=== PATIENT | female | born 2000 | race Caucasian/White ===

== ENCOUNTER 2024-05-14 12:34 | Emergency (ER) | payer BC, SELFPAY ==
[2024-05-14 12:39] VITALS: BP 128/84; PULSE 122; RESP 18; TEMP 37; O2SAT 99; BMI 18.8
--- NOTE | 2024-05-14 13:13 | ED_ITS ---
HPI - General Adult General Chief complaint: Sore Throat Stated complaint: chest/throat tightness/bodyaches Time Seen by Provider: 05/14/24 12:42 History of Present Illness HPI narrative: This 23-year-old female comes in reporting 5 days of sore throat, cough, chest tightness, generalized aches and pains, and fever. She states that she did not measure her temperature but felt feverish until last night when she did measure at and noted a temperature of a 101? F. she went to urgent care prior to arrival here and was instructed to come here for further evaluation. She does not have any trismus or muffled voice. She arrives with normal vital signs except she has some tachycardia. Related Data Home Medications ?Medication ?Instructions ?Recorded ?Confirmed albuterol sulfate .ROUTE PRN 05/14/24 Previous Rx's ?Medication ?Instructions ?Recorded acetaminophen 300 mg-codeine 30 mg 1 tab PO Q6H PRN pain #15 tabs 05/14/24 tablet azithromycin 250 mg tablet 250 mg PO DAILY #6 tabs 05/14/24 (Zithromax Z-Jhonny) Allergies Allergy/AdvReac Type Severity Reaction Status Date / Time No Known Drug Allergies Allergy Verified 05/14/24 12:38 Review of Systems Status of ROS: Reports: 10 or more systems reviewed and unremarkable except as noted in History and below Narrative: Constitutional: No . weight gain or loss. She reports fevers. Eyes: No discharge. No vision changes. HENT: No congestion, no ear pain. Sore throat. Cardiovascular: No chest pain, no palpitations. Respiratory: No shortness of breath, no wheezes. She reports a cough. Gastrointestinal: No abdominal pain, no vomiting, no diarrhea. Genitourinary: No dysuria, no hematuria. Musculoskeletal: Normal range of motion. Skin: No rashes, no pruritis. Neurological: No dizziness, weakness, sensory change, speech change. Endo/Heme/Allergies: No bruising or bleeding. No polydipsia. Pysch: no suicidality, no anxiety, no insomnia. All other systems reviewed and are negative. PFS PFS Social History Smoking Status: Never smoker How often do you have a drink containing alcohol: monthly or less AUDIT-C Alcohol total score: 1 Non-prescribed substance use: denies use Exam Narrative: Exam Narrative: Constitutional: Well-developed, well-nourished, no acute distress. HEENT: Normocephalic, atraumatic. Pharyngeal erythema without exudate or tonsillar hypertrophy. Neck: Normal range of motion. Nontender. Supple. Heart: Regular. No murmurs. Normal rate. Intact distal pulses. Lungs: Clear to auscultation. No chest discomfort. No wheezes, rhonchi, or rales. Abdomen: Normal bowel sounds. Nontender. No rebound tenderness. Genitalia: Deferred. Back: No midline tenderness. Normal range of motion. Extremities: Normal range of motion. No injury. Skin: Intact. No rash. Warm. No erythema or pallor. Neurologic: No altered sensation. No weakness. Alert and oriented. Psychiatric: No suicidality. No anxiety or depression. No insomnia. Nursing notes and vitals signs are reviewed. Const: Vital Signs, click to edit/add: Vital Signs - 24 hr 05/14/24 12:39 Temperature 98.6 F Pulse Rate [Pulse Oximeter] 122 H Respiratory Rate 18 Blood Pressure [[facility]] 128/84 Pulse Oximetry 99 Course Vital Signs Vital signs: Initial Vital Signs Temperature 98.6 F 05/14/24 12:39 Temperature Source Temporal Artery Scan 05/14/24 12:39 Pulse Rate 122 H 05/14/24 12:39 Respiratory Rate 18 05/14/24 12:39 Blood Pressure 128/84 05/14/24 12:39 Blood Pressure Mean 98 05/14/24 12:39 Blood Pressure Position Sitting 05/14/24 12:39 Pulse Oximetry 99 05/14/24 12:39 Vital Signs Temperature 98.6 F 05/14/24 12:39 Pulse Rate 122 H 05/14/24 12:39 Respiratory Rate 18 05/14/24 12:39 Blood Pressure 128/84 05/14/24 12:39 Pulse Oximetry 99 05/14/24 12:39 Temperature 98.6 F 05/14/24 12:39 Pulse Rate 122 H 05/14/24 12:39 Respiratory Rate 18 05/14/24 12:39 Blood Pressure 128/84 05/14/24 12:39 Pulse Oximetry 99 05/14/24 12:39 Medications Administered Medications: Discontinued Medications Generic Name Dose Route Start Last Admin Trade Name Freq PRN Reason Stop Dose Admin Dexamethasone 10 mg 05/14/24 13:12 05/14/24 13:21 Dexamethasone 10 Mg/Ml Inj PO 05/14/24 13:13 10 mg ONCE ONE Administration Medical Decision Making MDM Narrative Medical decision making narrative: This 23-year-old female comes in reporting 5 days of upper respiratory symptoms which is included a fever over these 5 days. Her vital signs are normal except for some mild tachycardia. Nasal pharyngeal swab and oral pharyngeal swab results are all negative. Given the patient's persistent fevers over the course of these 5 days I did prescribe a Z-Jhonny. She also received a prescription for some tablets of Tylenol 3 for symptomatic relief. Additionally she did receive a 1 time dose of dexamethasone 10 mg here. Lab Data Labs: Lab Results 05/14/24 Range/Units 12:45 SARS-CoV-2 (PCR) Negative SARS-CoV-2 (Negative) Influenza Type A (PCR) Negative PCR FLU A (Negative) Influenza Type B (PCR) Negative PCR FLU B (Negative) RSV (PCR) Negative PCR RSV (Negative) Group A Strep DNA NOT DETECTED (Not Detectd) Discharge Plan Discharge Clinical Impression: Acute lower respiratory infection Patient Disposition: Home, Self-Care Condition: Unchanged Additional Instructions: Take medications as needed and directed. Follow up with MD return if worsening. Prescriptions: New azithromycin [Zithromax Z-Jhonny] 250 mg tablet 250 mg PO DAILY Qty: 6 0RF acetaminophen-codeine 300-30 mg tablet 1 tab PO Q6H PRN (Reason: pain) Qty: 15 0RF No Action albuterol sulfate .ROUTE PRN Follow Up/Referrals: Provider,Not a Local [Primary Care Provider] - Stand Alone Forms: Klatcher Info Instructions
[2024-05-14] MEDS: dexAMETHasone 10 MG/ML inj PO (13:21)
[2024-05-14 13:25] LABS: Strep A DNA Probe* NOT DETECTED (Not Detectd)
[2024-05-14 13:37] LABS: PCR FLU A Negative PCR FLU A (Negative); PCR FLU B Negative PCR FLU B (Negative); PCR RSV Negative PCR RSV (Negative); SARS PCR* Negative SARS-CoV-2 (Negative)
--- OUTSIDE RECORDS SUMMARY | 2024-05-14 13:53 | XMS_ITS | Clinical Summary ---
Author Organization [facility] Address [address] [place] [address] Care Team Providers Care Plant Pathology Teacher Name Role Phone Unavailable Primary Care Provider Unavailabl e Source Comments You are receiving this document as you are listed as the primary care provider,follow-up provider, or the patient has been referred to you for consultation.This is in compliance with the Medicare andMedicaid EHR Incentive Program,which states Providers who transition their patient to another setting of careor provider of care or refers their patient to another provider of care shouldprovide summary care record for each transition of care or referral. [facility] Allergies No known active allergies Medications Medication Sig Dispensed Refills Start Date End Date Status hydrOXYzine HCl (ATARAX) 25 MG tablet Take 1 Tablet (25 mg) by mouth daily at bedtime. 02/13/2024 Active ALBUterol sulfate HFA 108 (90 Base) MCG/ACT inhalerIndications:Exer cise induced bronchospasm (HRC) Inhale 1-2 Puffs every 4 hours as needed for Wheezing. 18 g 2 03/15/2024 Active Active Problems Problem Noted Date Diagnosed Date HAILEY (generalized anxiety disorder) 10/28/2022 Major depressive disorder, single episode, mild 10/28/2022 Exercise induced bronchospasm 03/08/2018 Encounters Date Type Department Care Team Description 05/14/2024 11:40 AM HOSPITAL INTERN Office Visit Shaina Alirio [facility] [address] [place] [address] Eileen Waggoner MD Tachycardia; Chest pain, unspecified type 03/23/2024 8:30 AM HOSPITAL INTERN Office Visit [facility] [address], [address] [place] [address] Елена Duron, CLINICAL RESEARCH ADMINISTRATOR, PROSTHETIC ASSISTANT Nabothian cyst (Primary Dx); Cervical ectropion 03/15/2024 8:00 AM HOSPITAL INTERN Office Visit [facility] [id number] [place] [address] Kyle Quintero, CLINICAL RESEARCH ADMINISTRATOR, PROSTHETIC ASSISTANT Routine physical examination (Primary Dx); Lesion of cervix; Vaginal discharge; Decreased hearing of both ears; Exercise induced bronchospasm (HRC); HAILEY (generalized anxiety disorder) (HRC); Major depressive disorder, single episode, mild (HRC); Screening for malignant neoplasm of cervix; Routine screening for STI (sexually transmitted infection) from Last 3 Months Immunizations Name Administration Dates Next Due 4vHPV (Gardasil) 06/08/2013,02/27/2013 9vHPV (Gardasil 9) 09/01/2021 DTaP 12/01/2006, 3,11/23/2001, 002,09/26/2001 Flu Vac (3+ yrs) 02/27/2013, 2,03/09/2011, 010,01/25/2009,03/26/2008,04/13/2007,,06/23/2006,03/18/2005 Flu Vac Preserv Free (3+yrs) 03/09/2011 HepA Ped/Adol (1-18 yrs) 11/16/2007 Hib/HBV 11/23/2001,09/26/2001,05/23/2001 IPV (Polio) 07/25/2002,09/26/2001,05/23/2001 Influenza IIV4 (Quadrivalent ) 0.5mL (22422) 03/08/2018,02/22/2017,03/29/2016, 015,03/01/2014 MCV4 Menveo 2m.+ (two vial) 02/27/2013 MMR 12/01/2006,11/23/2001 Tdap 02/27/2013 Varicella 03/08/2018,03/18/2005 Family History Medical History Relation Name Comments Cancer, Melanoma Father Diabetes, Type II Mother Thyroid Disorder Mother ? Cancer Maternal Grandmother Judy Leukemi a Leukemia Maternal Grandmother Judy ? Cancer, Breast Negative Family History Cancer, Colon Negative Family History Cancer, Ovary Negative Family History Relation Name Status Comments Father Alive Mother Alive Brother 1 Alive Brother 2 Alive Maternal Grandfather Alive Maternal Grandmother Judy Alive Paternal Grandfather Paternal Grandmother Sister 1 Alive Sister 2 Alive Sister 3 Alive Social History Tobacco Use Types Packs/Day Years Used Date Smoking Tobacco: Never Smokeless Tobacco: Never Tobacco Cessation:Counseling Given: Not Answered Alcohol Use Standard Drinks/Week Comments Not Currently 0 (1 standard drink = 0.6 oz pur e alcohol) occ PHQ-2 Answer Date Recorded PHQ-2 Score 0 03/15/2024 Hunger Vital Sign Answer Date Recorded Within the past 12 months, y ou worried that your food would run out before you got the money to buy more. Never true 03/14/20 24 Within the past 12 months, t he food you bought just didn't last and you didn't have money to get more. Never true 03/14/2024 PRAPARE - Transportation Answer Date Re corded In the past 12 months, has l ack of transportation kept you from medical appointments or from getting medications? No 03/02 In the past 12 months, has l ack of transportation kept you from meetings, work, or from getting things needed for daily living? No 03/14/2024 Housing Stability Vital Sign Answer Michael e Recorded In the last 12 months, was t here a time when you were not able to pay the mortgage or rent on time? No 03/14/2024 In the past 12 months, how m any times have you moved where you were living? 1 03/14/2024 At any time in the past 12 m [facility], were you homeless or living in a skilled nursing (including now)? No 03/14/2024 Financial Resource Strain Answer Date R ecorded Is it hard for you to pay fo r the very basics like food, housing, medical care or heating? No 10/26/2022 Food Insecurity Answer Date Recorded Does your food run out before you have the money to buy more? No 10/26/2022 Transportation Needs Answer Date Record ed Does a lack of transportatio n keep you from your medical appointments or from getting your medications? No 023 Sex and Gender Information Value Date Recorded Sex Assigned at Not on file Gender Identity Not on file Sexual Orientation Not on file Last Filed Vital Signs Vital Sign Reading Time Taken Comments Blood Pressure 135/76 05/14/2024 11:36 AM HOSPITAL INTERN Pulse 136 05/14/2024 11:36 AM HOSPITAL INTERN Temperature 37.6 C (99.7 F) 05/14/2024 11:36 AM HOSPITAL INTERN Respiratory Rate 16 05/14/2024 11:36 AM HOSPITAL INTERN Oxygen Saturation 99% 05/14/2024 11:36 AM HOSPITAL INTERN Inhaled Oxygen Concentration - - Weight 55.4 kg (122 lb 3.2 oz) 03/23/2024 8:36 A M HOSPITAL INTERN Height 171.5 cm (5' 7.5) 03/23/2024 8:36 AM HOSPITAL INTERN Body Mass Index 18.86 03/23/2024 8:36 AM HOSPITAL INTERN Plan of Treatment Health Maintenance Due Date Last Done Comments Hep C Screening (Preventive Services) 2000 IPV (Polio) (4 of 4 - 4-dose series) 2004 07/25/2002, 09/26/2001, 05/23/2001 HepA (2 of 2 - 2-dose series) 05/18/2008 11/16/2007 HIV Screening (Preventive Services) 2016 DTaP/Tdap/Td (7 - Tdap) 02/27/2023 02/28/20 13, 12/01/2006, 07/25/2002, Additional history exists COVID-19 Vaccine ( season) 2024 Influenza (#1) 2024 03/08/2018, 01/31, 03/29/2016, Additional history exists Adult Preventive Visit 03/15/2025 , 10/28/2022, 09/01/2021 Chlamydia 03/15/2025 03/15/2024 Asthma ACT 04/29/2025 04/29/2024, 03/22/2024 Cervical Cancer Screening 03/15/2027 03/15/2024, 06/2021 Zoster/Shingles (1 of 2) 2050 HepB Completed 11/23/2001, 08/31, 05/23/2001 Hib Completed 11/23/2001, 08/31, 05/23/2001 MCV4 Aged Out 02/27/2013 No longer eligi ble based on patient's age to complete this topic Varicella Completed 03/08/2018, 03/18/2005 HPV Vaccine Completed 09/01/2021, 10/2013, 02/27/2013 Pneumococcal Aged Out No longer eligi ble based on patient's age to complete this topic Procedures Procedure Name Priority Date/Time Associated Diagnosis Comments ECG 12 LEAD OUTPATIENT STAT 05/14/2024 11:47 AM HOSPITAL INTERN Tachycardia VAGINITIS PANEL Routine 03/15/2024 8:15 AM HOSPITAL INTERN Vaginal discharge CHLAMYDIA & GC (14 YEARS & OLDER) Routine 03/15/2024 8:15 AM HOSPITAL INTERN Routine screening for STI (sexually transmitted infection) PAP TEST Routine 03/15/2024 8:15 AM HOSPITAL INTERN Screening for malignant neoplasm of cervix from Last 3 Months Results * ECG 12-LEAD ROUTINE (Non Lab to perform-Today)-STAT (05/14/2024 11:47 AM HOSPITAL INTERN) Ventricular Rate 104 BPM MUSE GHP Atrial Rate 104 BPM MUSE GHP P-R Interval 132 ms MUSE GHP QRS Duration 84 ms MUSE GHP QT 320 ms MUSE GHP QTC 420 ms MUSE GHP P [place] 80 degrees MUSE GHP R [place] 81 degrees MUSE GHP T [place] -4 degrees MUSE GHP 05/14/2024 11:4 7 AM HOSPITAL INTERN Narrative MUSE GHP - 05/14/2024 1:19 PM HOSPITAL INTERN Sinus tachycardia Inferior T wave inversion, consider ischemia Abnormal ECG No previous ECGs available Confirmed by Leilani Christianson ([id number]) on 05/14/2024 1:19:16 PM Procedure Note Leilani Christianson MD - 05/14/2024 Sinus tachycardia Inferior T wave inversion, consider ischemia Abnormal ECG No previous ECGs available Confirmed by Leilani Christianson ([id number]) on 05/14/2024 1:19:16 PM Eileen Waggoner MD PN ECG ORDERABLES [facility] [address] [place] [address] * PAP Test (03/15/2024 8:15 AM HOSPITAL INTERN) Case Report Pap Case: [id number] Authorizing Provider: Kyle Quintero APRN, Collected: 03/15/2024 0815 PROSTHETIC ASSISTANT Ordering Location: [facility] Received: 03/15/2024 1305 First Screen: Nault, Jessie E, [place] (ASCP) Specimen: Pap Test, Routine, Cervix/Endocervix 04/13/2024 3:13 PM HOSPITAL INTERN [facility] Pap Specimen Adequacy Satisfactory for evaluation, endocervical/kwan sformation zone component present. 04/13/2024 3:13 PM HOSPITAL INTERN [facility] Pap Interpretation (NILM) Negative for intraepithelial lesion or malignancy. 04/13/2024 3:13 PM HOSPITAL INTERN [facility] Pap Disclaimer The Pap test is a screening test to aid in the detection of cervical and vaginal cancers and their precursor lesions. It is not a diagnostic procedure and should not be used as the sole means of detecting malignancy. Both false-positive and false-negative results may occur. 04/13/2024 3:13 PM HOSPITAL INTERN [facility] Gross Description The specimen is received in SurePath fixative and properly labeled. 1 Pap-stained SurePath slide is prepared. 04/13/2024 3:13 PM HOSPITAL INTERN [facility] Embedded Images 3:13 PM HOSPITAL INTERN [facility] Other Specimen Type ENTIRE ENDOCERVIX / Unknown 03/15/2024 8:15 AM HOSPITAL INTERN 03/15/2024 1:05 PM HOSPITAL INTERN Comment:LMP: No LMP recorded . Kyle Quintero APRN, PROSTHETIC ASSISTANT LAB PATHOLOGY Performing Organization Address City/[facility]/ZIP Co de Phone Number [facility] [address] [place] [address], [facility] * Vaginitis Panel (Includes Bacterial Vaginosis, Mckenzie Species, Mckenzie Glabrata and Trichomonas Vaginalis.) (03/15/2024 8:15 AM HOSPITAL INTERN) Bacterial Vaginosis Negative Negative 03/16/2024 12:14 PM HOSPITAL INTERN [facility] Mckenzie species Negative Negative 12:14 PM HOSPITAL INTERN [facility] Mckenzie glabrata Negative Negative 03/16/2024 12:14 PM HOSPITAL INTERN [facility] Trichomonas vaginalis Negative Negative 03/16/2024 12:14 PM HOSPITAL INTERN [facility] Swab STD SPECIMEN FROM VAGINA / Unknown Non-blood Collection / Unknown 03/15/2024 8:15 AM HOSPITAL INTERN 03/15/2024 12:57 PM HOSPITAL INTERN [facility] - 03/16/2024 12:14 PM HOSPITAL INTERN Test performed by [employer] Vice President Mediated Amplification (TMA). Kyle Quintero APRN, CNP LAB_1 Performing Organization Address [facility] Co de Phone Number [facility] [address] [place] [address] * Chlamydia & GC (14 Years and Older): Vagina (03/15/2024 8:15 AM HOSPITAL INTERN) Chlamydia Trachomatis STD Not Detected Not Detected 03/16/2024 12:46 PM HOSPITAL INTERN [facility] N. gonorrhoeae STD Not Detected Not Detected 03/16/2024 12:46 PM HOSPITAL INTERN [facility] Swab STD SPECIMEN FROM VAGINA / Unknown Non-blood Collection / Unknown 03/15/2024 8:15 AM HOSPITAL INTERN 03/15/2024 12:57 PM HOSPITAL INTERN [facility] - 03/16/2024 12:46 PM HOSPITAL INTERN Test performed by [employer] Vice President Mediated Amplification (TMA). Kyle Quintero APRN, CNP LAB_1 Performing Organization Address City/[facility] Co de Phone Number [facility] [address] [place] [address] from Last 3 Months Sourav Derickmakayla Personal/Family Self [address] [place] [address]
--- OUTSIDE RECORDS SUMMARY | 2024-05-14 13:53 | XMS_ITS | Encounter Summary ---
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 Name Role Phone Unavailable Primary Care Provider Unavailabl e Reason for Visit * Reason Comments Cough Encounter Details Date Type Department Care Team ([facility] st Contact Info) Description 05/14/2024 11:40 AM SENIOR QUANTITY SURVEYOR Office Visit [facility] [address] [place] [address] Eileen Waggoner MD [address] [place], [place] [id number] Tachycardia; Chest pain, unspecified type Social History Tobacco Use Types Packs/Day Years Used Date Smoking Tobacco: Never Smokeless Tobacco: Never Alcohol Use Standard Drinks/Week Comments Not Currently [...] any time in the past 12 m [facility], were you homeless or living in a halfway (including now)? No 03/14/2024 Financial Resource Strain [...] on file Sexual Orientation Not on file documented as of this encounter Last Filed Vital Signs Vital Sign Reading Time Taken Comments Blood Pressure 135/76 05/14/2024 11:36 AM SENIOR QUANTITY SURVEYOR Pulse 136 05/14/2024 11:36 AM SENIOR QUANTITY SURVEYOR Temperature 37.6 C (99.7 F) 05/14/2024 11:36 AM SENIOR QUANTITY SURVEYOR Respiratory Rate 16 05/14/2024 11:36 AM SENIOR QUANTITY SURVEYOR Oxygen Saturation 99% 05/14/2024 11:36 AM SENIOR QUANTITY SURVEYOR Inhaled Oxygen Concentration - - Weight - - Height - - Body Mass Index - - documented in this encounter Progress Notes * Eileen Waggoner MD - 05/14/2024 11:40 AM CST [facility] Provider Note Patient: Kendy Benjamin Age: 23 y.o. Date Of : 2000 Urgent Care Provider: Eileen Waggoner MD Date of Service: 05/14/2024 CHIEF COMPLAINT Chief Complaint Patient presents with Cough HISTORY OF PRESENT ILLNESS 23 y.o. year old female presents to the Urgent Care today for evaluation of shortness of breath andchest pain. Patient has been sick for the past week. Patient says that a week ago she started to feel sick and achy. Then she developed fevers 5 days ago. Now she has had a sore throat, cough hot andcold flashes. But this morning she became very short of breath and she was having chest pain. She does have a history of asthma that has exercise-induced and cold induced. She feels lightheaded and dizzy. She had a very difficult time walking in from the parking lot here to urgent care and that is when she started having the chest pain. Reviewed Nursing Notes: Marysol Bonner RN 05/14/24 1139 Addendum Kendy Benjamin is a 23 y.o.female presents to the Urgent Care. Has been feeling sick since Tuesday. Developed fevers on Tuesday night. Notes to cough, sore throat, chest tightness, chills/hot flashes, body aches, and nasal drainage which is upsetting her stomach. OTC: Dayquil, Nyquil REVIEW OF SYSTEMS As reflected above in HPI. With open ended questioning the patient denies any other complaints or concerns for today's visit. PRIOR HISTORY Medications: Outpatient Medications Prior to Visit Medication Sig Dispense Refill ALBUterol sulfate HFA 108 (90 Base) MCG/ACT inhaler Inhale 1-2 Puffs every 4 hours as needed for Wheezing. 18 g 2 hydrOXYzine HCl (ATARAX) 25 MG tablet Take 1 Tablet (25 mg) by mouth daily at bedtime. No facility-administered medications prior to visit. Reviewed via [employer] Chart Review/CareEverywhere: Allergies Past Medical/Surgical History Family/Social History PHYSICAL EXAM Vitals Reviewed: BP 135/76 (BP Location: Left Arm, BP Cuff Size: Regular - Long) Pulse (!) 136 Temp 37.6 ??C (99.7 ??F) (Oral) Resp 16 SpO2 99% Alert and oriented in no apparent distress. Constitutional: Alert, Cooperative, Conversational HENT: Atraumatic, no obvious abnormality to the head/face. Tympanic membranes reveal no sign of infection. Sinuses are nontender. Oropharynx is pink and moist no tonsillar enlargement. Eyes: Eyes track movements normally during exam, no drainage, conjunctiva normal Neck: Moves neck freely and normally throughout exam, no visible abnormality Respiratory: No respiratory distress. SPO2 as above. Normal Effort. Talking in full sentences. CTA bilaterally. Some mild expiratory wheezing. Cardiovascular: BP and Heart Rate as above. RRR without MRG. Musculoskeletal: Normal use of extremities throughout exam without evidence of abnormality. Gastrointestinal: Soft, nontender, nondistended, normal bowel sounds. Neurological: Alert and oriented. Speech is clear and appropriate. Skin: Dry, No evidence rash/abrasion/laceration on my exam. Psychiatric: Normal affect. Normal behavior. LABS - IMAGING - MEDICATIONS LABS/EKG: Results for orders placed or performed in visit on 05/14/24 ECG 12-LEAD ROUTINE (Non Lab to perform-Today)-STAT Result Value Ref Range Ventricular Rate 104 BPM Atrial Rate 104 BPM P-R Interval 132 ms QRS Duration 84 ms QT 320 ms QTC 420 ms P Jackson 80 degrees R Jackson 81 degrees T Jackson -4 degrees Sinus tachycardia Abnormal QRS-T angle, consider primary T wave abnormality Abnormal ECG No previous ECGs available IMAGING: No results found. INTERVENTIONS: MEDICAL DECISION MAKING Patient seen and assessed. Presented to Urgent Care for Chest pain, shortness of breath and influenza like symptoms. Due to the fact that patient has an abnormal EKG and feeling of chest pain and shortness of breath she will be sent to the ER for further evaluation treatment. She understands she needs to be seen at a higher level facility and needs a full cardiovascular and respiratory workup. She is tachycardic, short of breath and having chest pain. Patient is in agreement with the plan and is here with her significant other. He will drive up and we will we will her out and they will drive her immediately across street to [facility] for further evaluation and treatment. ASSESSMENT & PLAN DIAGNOSIS: ICD-10-CM 1. Tachycardia R00.0 ECG 12-LEAD ROUTINE (Non Lab to perform-Today)-STAT 2. Chest pain, unspecified type R07.9 No orders of the defined types were placed in this encounter. DISPOSITION: [facility] ER There are no Patient Instructions on file for this visit. Eileen Waggoner MD [facility] OR QUANTITY SURVEYOR documented in this encounter Nursing Notes * Marysol Bonner, RN - 05/14/2024 11:40 AM CST Kendy Benjamin is a 23 y.o.female presents to the Urgent Care. Has been feeling sick since Tuesday. Developed fevers on Tuesday night. Notes to cough, sore throat, chest tightness, chills/hot flashes, body aches, and nasal drainage which is upsetting her stomach. OTC: Dayquil, Nyquil OR QUANTITY SURVEYOR documented in this encounter Plan of Treatment Not on file documented as of this encounter Procedures Procedure Name Priority Date/Time Associated Diagnosis Comments ECG 12 LEAD OUTPATIENT STAT 05/14/2024 11:47 AM SENIOR QUANTITY SURVEYOR Tachycardia documented in this encounter Results * ECG 12-LEAD ROUTINE (Non Lab to perform-Today)-STAT (05/14/2024 11:47 AM SENIOR QUANTITY SURVEYOR) Ventricular Rate 104 BPM [facility] Atrial Rate 104 BPM [facility]USE [facility] P-R Interval 132 ms MUSE [facility] QRS Duration 84 ms MUSE [facility] QT 320 ms MUSE [facility] QTC 420 ms MUSE [facility] P Jackson 80 degrees MUSE GHP R Jackson 81 degrees MUSE GHP T Jackson -4 degrees MUSE [facility] 05/14/2024 11:4 7 AM SENIOR QUANTITY SURVEYOR Narrative MUSE [facility] - 05/14/2024 1:19 PM SENIOR QUANTITY SURVEYOR Sinus tachycardia Inferior T wave inversion, consider ischemia Abnormal ECG No previous ECGs available Confirmed by Leilani Christianson ([id number]) on 05/14/2024 1:19:16 PM Procedure Note Leilani Christianson MD - 05/14/2024 Sinus tachycardia Inferior T wave inversion, consider ischemia Abnormal ECG No previous ECGs available Confirmed by Leilani Christianson ([id number]) on 05/14/2024 1:19:16 PM Eileen Waggoner MD PN ECG ORDERABLES [facility] [address] [place] [address] documented in this encounter Visit Diagnoses Diagnosis Tachycardia Tachycardia, unspecified Chest pain, unspecified type documented in this encounter
--- OUTSIDE RECORDS SUMMARY | 2024-05-14 13:53 | XMS_ITS | Clinical Summary ---
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 Name Role Phone Pcp, No Primary Care Provider Unavailabl e Allergies No known active allergies Medications No known medications Active Problems Problem Noted Date Diagnosed Date Irregular periods/menstrual cycles 03/08/2018 Exercise induced bronchospasm 03/08/2018 Depressive syndrome 03/08/2018 Well adolescent visit 02/27/2013 Resolved Problems Problem Noted Date Diagnosed Date Resolved Date Strep pharyngitis 10/27/2012 02/27/2013 Immunizations Name Administration Dates Next Due AMB Influenza, IIV3 (Age >=3 years)(Flu Clinic Only) 03/09/2011,03/03/2010,01/25/2009 AMB Influenza, IIV4 PF (=>6 mos Flulaval,Fluzone Fluarix)(Flu Clinic Only) 02/22/2017,03/07/2015,03/01/2014 DTaP 12/01/2006, 3,11/23/2001,10/21,09/26/2001 HIB-HepB (Comvax) 11/23/2001,09/26/2001,05/23/19 02 Hepatitis A (Peds) 11/16/2007 Human Papilloma Virus Vaccine 06/08/2013, 013 Inactivated Polio Vaccine 07/25/2002,09/26/2001, 05/23/2001 Influenza, IIV3 (Age 6-35 mos) 03/09/2011 Influenza, IIV3 (Age >=3 years) 02/28/20 13,04/13/2012,03/03/2010,01/25,03/26/2008,04/13/2007,02/25/2007 ,06/23/2006,03/18/2005 Influenza, IIV4 03/08/2018, 6,03/07/2015,03/01 MENINGOCOCCAL VACCINE 2 VIAL [id number] (MENVEO) 02/27/2013 MMR 12/01/2006,11/23/2001 Tdap 02/27/2013 Varicella Vaccine 03/08/2018,03/18/2005 Family History Medical History Relation Name Comments Good Health Brother 1 Good Health Brother 2 Kidney cancer Father Malignant Hypertension Father Melanoma Father Diabetes Mother Good Health Sister 1 Good Health Sister 2 Good Health Sister 3 Relation Name Status Comments Brother 1 Alive Brother 2 Alive Father Alive Mother Alive Sister 1 Alive Sister 2 Alive Sister 3 Alive Social History Tobacco Use Types Packs/Day Years Used Date Smoking Tobacco: Never Smokeless Tobacco: Never Tobacco Cessation:Counseling Given: No Alcohol Use Standard Drinks/Week Comments No 0 (1 standard drink = 0.6 oz pur e alcohol) rarely PHQ-2 Answer Date Recorded PHQ-2 Score 3 07/02/2018 Comments No Sex and Gender Information Value Date Recorded Sex Assigned at Not on file Legal Sex Female 5:43 AM THIRD HAND Gender Identity Not on file Sexual Orientation Not on file Obstetrics History Last Filed Vital Signs Vital Sign Reading Time Taken Comments Blood Pressure 140/99 06/15/2021 4:12 PM THIRD HAND Pulse 88 06/15/2021 4:12 PM THIRD HAND Temperature 36.9 C (98.4 F) 06/15/2021 4:12 PM THIRD HAND Respiratory Rate 18 06/15/2021 4:12 PM THIRD HAND Oxygen Saturation 99% 06/15/2021 4:12 PM THIRD HAND Inhaled Oxygen Concentration - - Weight 54.4 kg (120 lb) 06/15/2021 4:12 PM THIRD HAND Height 170.2 cm (5' 7) 06/15/2021 4:12 PM THIRD HAND Body Mass Index 18.79 06/15/2021 4:12 PM THIRD HAND Plan of Treatment Health Maintenance Due Date Last Done Comments HPV series for age 9-26 (3 - 2-dose series) 08/31/2013 06/08/2013, 02/27/2013 HIV for age 15-65 2015 Chlamydia for age 16-24 2016 BMI (ht and wt on same day) for age 18+ 2018 Hepatitis C screening for age 18-79 2018 Depression screening for age 12+ 03/08/2019 03/08/2018 Pap test for age 21-65 2021 Tetanus booster 02/27/2023 02/27/2013 COVID-19 vaccine series (2023-25 season) 2024 Influenza for age 9-49 01/01/2024 8, 02/22/2017, 03/29/2016, Additional history exists Tdap Completed 02/27/2013 Pneumococcal series for age 6-49 Aged Out No longer eligible based on patient's age to complete this topic Insurance [employer] INS [facility] Care Teams Cultured Marble 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 PCP - General 02/21/20
== END 2024-05-14 14:07 | disposition home or self-care (01) ==
PROVIDERS: Emergency Provider Emergency Medicine Emergency Medical Services
DX: J22 Unspecified acute lower respiratory infection (principal)
CPT/HCPCS: 87631; 87651; 99283; 99284; J1100